=== PATIENT | male | born 1930 ===

== ENCOUNTER 2016-12-14 13:41 | Inpatient (IN) | payer OTHER ==
--- NOTE | 2016-12-14 14:22 | ED PDOC ---
HPI: Chest Pain Time Seen by Provider: 12/14/16 13:58 Chief Complaint (Nursing): Chest Pain Chief Complaint (Provider): Chest Pain History Per: Patient History/Exam Limitations: no limitations Onset/Duration Of Symptoms: Days Current Symptoms Are (Timing): Still Present Severity: Moderate Quality: "Pain" Associated Symptoms: Dyspnea Modifying Factors: None Exacerbating Factors: None Alleviating Factors: None Additional Complaint(s): Patient is a 85 year old male who presents to ED with daughter for evaluation of chest pain that began yesterday. Pain is described as left sided, mid sternal , sharp yesterday but today just " pain" with SOB. Patient reports taking ASA [place] but ran out, did not take his ASA this morning. Past Medical History Reviewed: Historical Data, Nursing Documentation, Vital Signs Vital Signs: Last Vital Signs Temp 97 F L 12/14/16 13:50 Pulse 62 12/14/16 13:50 Resp 16 12/14/16 13:50 BP 144/71 12/14/16 13:50 Pulse Ox 100 12/14/16 14:33 - Medical History PMH: Anxiety, Benign Prostatic Hyperplasia, HTN, Hyperlipidemia - Surgical History Surgical History: No Surg Hx - Family History Family History: States: No Known Family Hx - Home Medications Home Medications: Ambulatory Orders Medication Instructions Recorded ALPRAZolam [Xanax] 1 tab PO PRN PRN 12/14/16 Atorvastatin Calcium [Atorvastatin 1 tab PO HS 12/14/16 Calcium] Cetirizine HCl [All Day Allergy] 1 tab PO PRN PRN 12/14/16 Finasteride [Proscar] 1 tab PO HS 12/14/16 Metoprolol Tartrate [Lopressor] 1 tab PO BID 12/14/16 Pantoprazole [Protonix EC Tab] 1 tab PO BID 12/14/16 Tamsulosin [Flomax] 1 tab PO HS 12/14/16 - Allergies Allergies/Adverse Reactions: Allergies Allergy/AdvReac Type Severity Reaction Status Date / Time Penicillins Allergy RASH Verified 12/14/16 13:50 MAISHA Risk Score for UA/NSTEMI - MAISHA Risk Score Age > 64: YES 3 or more CAD Risk Factors: YES Known CAD (Stenosis greater than 50%): NO Aspirin use in past 7 days: YES Severe Angina: NO EKG ST changes greater than 0.5mm: NO Positive Cardiac Marker: NO MAISHA Score: 3 Risk %: 13% Review of Systems ROS Statement: Except As Marked, All Systems Reviewed And Found Negative Constitutional: Negative for: Fever, Chills Cardiovascular: Positive for: Chest Pain. Negative for: Palpitations, Light Headedness Respiratory: Positive for: Shortness of Breath. Negative for: Cough Gastrointestinal: Negative for: Nausea, Vomiting Musculoskeletal: Negative for: Neck Pain Skin: Negative for: Rash Neurological: Negative for: Weakness, Numbness Physical Exam - Reviewed Nursing Documentation Reviewed: Yes Vital Signs Reviewed: Yes - Physical Exam Appears: Positive for: Non-toxic, No Acute Distress Skin: Positive for: Normal Color, Warm Eye Exam: Positive for: Normal appearance Neck: Positive for: Normal, Painless ROM Cardiovascular/Chest: Positive for: Regular Rate, Rhythm, Chest Non Tender. Negative for: Murmur Respiratory: Positive for: Normal Breath Sounds. Negative for: Respiratory Distress Back: Positive for: Normal Inspection Extremity: Positive for: Normal ROM. Negative for: Pedal Edema, Calf Tenderness Neurologic/Psych: Positive for: Alert, Oriented. Negative for: Motor/Sensory Deficits - Laboratory Results Result Diagrams: 12/14/16 15:05 12/14/16 15:05 - ECG Interpretation Of ECG: NSR @ 67, no ST-T changes. O2 Sat by Pulse Oximetry: 100 (RA) Pulse Ox Interpretation: Normal - Radiology X-Ray: Interpreted by Me X-Ray Interpretation: No Acute Disease Medical Decision Making Medical Decision Making: Time: 1420 Initial impression: Chest pain r/o ACS Initial plan: -- EKG -- CMP -- Troponin -- CBC -- PT/PTT -- CXR Scribe Attestation: Documented by Makeda Mcmillan acting as a scribe for Natty Clements MD MD Scribe Attestation: All medical record entries made by the Scribe were at my direction and personally dictated by me. I have reviewed the chart and agree that the record accurately reflects my personal performance of the history, physical exam, medical decision making, and the department course for this patient. I have also personally directed, reviewed, and agree with the discharge instructions and disposition. Disposition - Clinical Impression Clinical Impression: Chest pain - Patient ED Disposition Is Patient to be Admitted: Yes - Disposition Disposition Time: 16:15 Condition: STABLE - Pt Status Changed To: Hospital Disposition Of: Observation - POA Present On Arrival: None
[2016-12-14 15:10] LABS: BASO % 0.6 % (0.0-2.0); EOS # 0.4 K/uL (0.0-0.7); EOS % 5.1 % (0.0-4.0); HEMATOCRIT 41.1 % (35.0-51.0); LYMPH # 2.8 K/uL (1.0-4.3); MEAN CELL VOLUME 85.5 fl (80.0-94.0); MEAN CORPUSCULAR HEMOGLOBIN 27.7 pg (27.0-31.0); MEAN CORPUSCULAR HGB CONC 32.4 g/dL (33.0-37.0); MEAN PLATELET VOLUME 9.3 fl (7.2-11.7); MONO # 0.6 K/uL (0.0-0.8); NEUT # 3.7 K/uL (1.8-7.0); NEUT % 49.3 % (50.0-75.0); NRBC % 2.1 % (0.0-0.0); RED CELL DISTRIBUTION WIDTH 14.8 % (11.5-14.5); WHITE BLOOD COUNT 7.5 K/uL (4.8-10.8)
[2016-12-14 15:23] LABS: ALB/GLOB RATIO 1.3 (1.0-2.1); BILIRUBIN,TOTAL 0.5 mg/dl (0.2-1.3); CALCIUM 8.9 mg/dL (8.4-10.2); POTASSIUM 4.8 MMOL/L (3.6-5.0); TOTAL PROTEIN 6.8 G/DL (6.3-8.2)
[2016-12-14 15:25] LABS: PARTIAL THROMBOPLASTIN TIME 28.5 SECONDS (23.3-32.5)
[2016-12-14 15:36] LABS: TROPONIN I 0.016 ng/mL (0.00-0.120)
--- NOTE | 2016-12-14 16:49 | CP.PCM.HP ---
<Thao Shaw - Last Filed: 12/15/16 14:26> History of Present Illness - History of Present Illness History of Present Illness: Pt is a 85 year old male with history of gastric ulcer, BPH and HTN who presents to ED with daughter for evaluation of chest pain that began yesterday. Pain is described as left sided, mid sternal, sharp yesterday but today just " pain" with SOB. Patient reports taking ASA daily but ran out. Pt seen and examined at bedside in ED, he point more towards his stomach area for the place the pain is coming from and radiating to his back. Pain has not changed since onset. denies any dizziness, cough, nausea, vomiting or change in bowel habits Present on Admission - Present on Admission Any Indicators Present on Admission: No Review of Systems - Review of Systems All systems: reviewed and no additional remarkable complaints except Review of Systems: Per HPI Past Patient History - Past Social History Smoking Status: Never Smoked - CARDIAC Hx Hypertension: Yes - RENAL Other/Comment: "kidney problems" - PSYCHIATRIC Hx Anxiety: Yes - SURGICAL HISTORY Hx Herniorrhaphy: Yes Other/Comment: hernia repair, gastric ulcer surgery - ANESTHESIA Hx Anesthesia: Yes Hx Anesthesia Reactions: No Meds Allergies/Adverse Reactions: Allergies Allergy/AdvReac Type Severity Reaction Status Date / Time Penicillins Allergy RASH Verified 12/14/16 13:50 Physical Exam - Constitutional Appears: Non-toxic, No Acute Distress - Head Exam Head Exam: NORMOCEPHALIC - Eye Exam Eye Exam: Normal appearance - ENT Exam ENT Exam: Mucous Membranes Moist - Respiratory Exam Respiratory Exam: Clear to Auscultation Bilateral, NORMAL BREATHING PATTERN. absent: Wheezes - Cardiovascular Exam Cardiovascular Exam: REGULAR RHYTHM, +S1, +S2 - GI/Abdominal Exam GI & Abdominal Exam: Normal Bowel Sounds, Soft - Extremities Exam Extremities exam: Negative for: calf tenderness, pedal edema Results - Vital Signs Recent Vital Signs: Last Vital Signs Temp 97 F L 12/14/16 13:50 Pulse 62 12/14/16 13:50 Resp 16 12/14/16 13:50 BP 144/71 12/14/16 13:50 Pulse Ox 100 12/14/16 16:48 - Labs Result Diagrams: 12/14/16 15:05 12/14/16 15:05 Assessment & Plan - Assessment and Plan (Free Text) Assessment: 86 y/o male with history of BPH, HTN and gastric ulcer admitted for chest pain rule out ACS Plan: 1. Chest pain r/o ACS cardiac enzymes (first 1 neg) f/u x2 Aspirin 325 pain management as ordered cardiology consulted 2. resume home meds 3. Diet- heart healthy dvt- lovenox 30mg SC daily <Artie He - Last Filed: 12/19/16 06:08> Results - Vital Signs Recent Vital Signs: Last Vital Signs Temp 97.5 F L 12/19/16 05:00 Pulse 64 12/19/16 05:00 Resp 18 12/19/16 05:00 BP 137/79 12/19/16 05:00 Pulse Ox 96 12/19/16 05:00 - Labs Result Diagrams: 12/18/16 06:40 12/18/16 06:40 Labs: Laboratory Results - last 24 hr 12/18/16 06:40 WBC 7.6 RBC 4.58 Hgb 12.7 Hct 38.9 MCV 85.0 MCH 27.8 MCHC 32.7 L RDW 14.5 Plt Count 218 Sodium 142 Potassium 5.3 H Chloride 106 Carbon Dioxide 26 Anion Gap 15 BUN 31 H Creatinine 2.1 H Est GFR ( Amer) 37 Est GFR (Non-Af Amer) 30 Random Glucose 101 Calcium 8.8 Assessment & Plan (1) Chest pain Status: Acute Priority: High (2) Benign prostatic hyperplasia Status: Acute (3) Renal insufficiency Status: Acute (4) Hyperkalemia Status: Acute - Assessment and Plan (Free Text) Plan: I was present during evaluation and discussed with Dr Valeria manning plans of care and management. Artie He M.D.
--- NOTE | 2016-12-14 16:59 | RAD ---
HISTORY: CP COMPARISON: No prior. FINDINGS: LUNGS: Patchy small opacities seen at the lung bases left more than right. PLEURA: No significant pleural effusion identified, no pneumothorax apparent. CARDIOVASCULAR: Normal. OSSEOUS STRUCTURES: No significant abnormalities. VISUALIZED UPPER ABDOMEN: Normal. OTHER FINDINGS: None. IMPRESSION: Small bibasilar opacities more prominent on the left side may be due to atelectasis. Otherwise no evidence of active pulmonary disease.
--- NOTE | 2016-12-14 17:58 | CARD ---
APPROVED REPORT EKG Measurement Heart [id number] <Conclusion> Normal sinus rhythm Left axis deviation Minimal voltage criteria for LVH, may be normal variant Nonspecific ST and T wave abnormality Prolonged QT Abnormal ECG
[2016-12-14] MEDS ORDERED: Pantoprazole 40 mg EC Tab PO ONE (18:26)
[2016-12-14] MEDS: Pantoprazole 40 mg EC Tab PO SCH (18:32)
[2016-12-15] MEDS: NITROGLYCERIN TOP PRN ×2 (03:32→21:07)
[2016-12-15] MEDS ORDERED: NITROGLYCERIN TOP SCH (04:00)
--- NOTE | 2016-12-15 07:07 | CP.PCM.CON ---
History of Present Illness - History of Present Illness History of Present Illness: 86 y/o male admitted w/ chest pain Left parasternal sharp pain Claims the pain is still present but dull and aching no relation to exertion Troponin: neg x 3 EKG: NSR PMH: Anxiety, Benign Prostatic Hyperplasia, HTN, Hyperlipidemia Past Patient History - Past Social History Smoking Status: Former Smoker - CARDIAC Hx Cardiac Disorders: Yes (HTN,HLD) - PULMONARY Hx Respiratory Disorders: No - NEUROLOGICAL Hx Neurological Disorder: No - HEENT Hx HEENT Problems: Yes Hx Deafness: Yes (left) - RENAL Hx Chronic Kidney Disease: Yes Other/Comment: Right kidney 30% function only - ENDOCRINE/METABOLIC Hx Endocrine Disorders: No - HEMATOLOGICAL/ONCOLOGICAL Hx Blood Disorders: Yes Hx Anemia: Yes (Diagnosed in 2016) - INTEGUMENTARY Hx Dermatological Problems: No - MUSCULOSKELETAL/RHEUMATOLOGICAL Hx Musculoskeletal Disorders: Yes Hx Arthritis: Yes Hx Falls: No - GASTROINTESTINAL Hx Gastrointestinal Disorders: Yes Hx Gastritis: Yes HX Swallowing Problems: Yes - GENITOURINARY/GYNECOLOGICAL Hx Genitourinary Disorders: Yes Hx Prostate Problems: Yes - PSYCHIATRIC Hx Psychophysiologic Disorder: Yes (ANX) Hx Anxiety: Yes Hx Substance Use: No - SURGICAL HISTORY Hx Surgeries: Yes Hx Herniorrhaphy: Yes Other/Comment: hernia repair, gastric ulcer surgery - ANESTHESIA Hx Anesthesia: Yes Hx Anesthesia Reactions: No Meds Allergies/Adverse Reactions: Allergies Allergy/AdvReac Type Severity Reaction Status Date / Time Penicillins Allergy RASH Verified 12/14/16 13:50 - Medications Medications: Current Medications Acetaminophen (Tylenol 325mg Tab) 650 mg PO Q4 PRN PRN Reason: Headache Last Admin: 12/15/16 03:31 Dose: 650 mg Alprazolam (Xanax) 0.25 mg PO HS PRN PRN Reason: Anxiety Stop: 12/21/16 16:28 Last Admin: 12/14/16 21:14 Dose: 0.25 mg Aspirin (Aspirin) 325 mg PO DAILY [facility] Atorvastatin Calcium (Lipitor) 20 mg PO HS [facility] Last Admin: 12/14/16 21:19 Dose: 20 mg Enoxaparin Sodium (Lovenox) 30 mg SC DAILY [facility] PRN Reason: Protocol Finasteride (Proscar) 5 mg PO HS [facility] Last Admin: 12/14/16 21:19 Dose: 5 mg Home Med (Cetirizine Hcl [All Day Allergy]) 1 tab PO PRN PRN PRN Reason: Allergy symptoms Metoprolol Tartrate (Lopressor) 25 mg PO BID [facility] Last Admin: 12/14/16 18:14 Dose: 25 mg Nitroglycerin (Nitro-Bid) 0.5 appl TOP Q6 PRN PRN Reason: FOR CHEST PAIN Last Admin: 12/15/16 03:32 Dose: 0.5 appl Pantoprazole Sodium (Protonix Ec Tab) 40 mg PO BID [facility] Last Admin: 12/14/16 18:32 Dose: 40 mg Tamsulosin HCl (Flomax) 0.4 mg PO HS [facility] Last Admin: 12/14/16 21:19 Dose: 0.4 mg Physical Exam - Respiratory Exam Respiratory Exam: NORMAL BREATHING PATTERN - Cardiovascular Exam Cardiovascular Exam: REGULAR RHYTHM Results - Vital Signs Recent Vital Signs: Last Vital Signs Temp 97.4 F L 12/15/16 04:50 Pulse 67 12/15/16 04:50 Resp 19 12/15/16 04:50 BP 114/71 12/15/16 04:50 Pulse Ox 97 12/15/16 04:50 - Labs Result Diagrams: 12/14/16 15:05 12/14/16 15:05 Labs: Laboratory Results - last 24 hr 12/14/16 12/15/16 18:20 00:30 Troponin I 0.0140 0.0140 Assessment & Plan (1) Chest pain Assessment and Plan: Most likely non cardiac in origin Status: Acute
[2016-12-15] MEDS: Pantoprazole 40 mg EC Tab PO SCH ×2 (08:55→17:48)
[2016-12-15] MEDS: Enoxaparin 30 mg Syringe SC SCH (08:56)
[2016-12-15] MEDS: Alum-Mag Hydrox-Simethicone Susp (30 mL) PO PRN (12:13)
--- NOTE | 2016-12-15 13:16 | PCM.RRTMUL ---
EXTRUSION LINE OPERATOR Nurse Assessment - Vital Signs Blood Pressure:: 111/61 Pulse Rate:: 63 Responder Note - Time EXTRUSION LINE OPERATOR was called Time EXTRUSION LINE OPERATOR was called:: 11:52 - Location Location: [address] [place] [address] telemetry - EXTRUSION LINE OPERATOR Team EXTRUSION LINE OPERATOR Leader:: Omer Holcomb Resident:: Cari Montiel - Vital Signs at Initial Assessment Blood Pressure:: 140/62 Pulse Rate:: 72 O2 Sat by Pulse Oximetry:: 98 - Chest Pain Chest Pain:(If answer is yes, complete next 2 questions): Yes - Seizure Seizure:: No New Onset:: No - Neurological Status Neurological Status (Select all that apply):: Alert, Responsive, Oriented, Verbal, Follows Commands - Respiratory EXTRUSION LINE OPERATOR Delivery Method:: Nasal Cannula @L/min - Assessment of Findings EKG: NSR, HR:66 b/min Summary - Summary of Event Summary of Event: EXTRUSION LINE OPERATOR was called for a 56 yo , m , PMHx/o anxiety, Benign Prostatic Hyperplasia, HTN, Hyperlipidemia admitted for chest pain, who was noted by the nurse c/o substernal chest pain, 8/10 in intensity radiated to upper back and right interscapular region. On responder arrival patient lying down, using O2 NC, responsive, AAOx 3, verbal, follow commands. Patient denies abd pain, N/V/D, diaphoresis. Initial VS: 140/62 HR: 72 b/min Sat O2 98 PE GA: Patient lying down, using O2 NC, responsive, AAOx 3, follow commands, no acute distress Resp: Chest no reproducible pain over anterior chest. Td to palpation upper back right interscapular region. CTA, no rales, rhonchi, wheezing. CV: RRR, + S1, S2. No M/R/G. no JVD, no pedal edema, no cyanosis. B/L radial pulses symmetric. Left arm BP: 150/70 Abd: + Bs, Soft, No TD, No HSM Neuro: AAO x 3, no focal motor deficit. ID: Chest pain possible secondary to gastritis or MSK etiology. ACS ruled out Plan: -EKG stat: NSR. no acute T wave or ST changes. HR: 72 b/min -CT chest w/o contrast pending. -Malox 30 mg PO -c/w PPI will f/u
--- NOTE | 2016-12-15 14:40 | CT ---
PROCEDURE: CT Chest without contrast HISTORY: Chest pain COMPARISON: None. TECHNIQUE: Contiguous axial images were obtained through the chest without intravenous contrast enhancement. Sagittal and coronal reconstructions were performed. Radiation dose (DLP): 474.27 mGy-cm. This CT exam was performed using 1 or more of the following dose reduction techniques: Automated exposure control, adjustment of the mA and/or kV according to patient size, and/or use of iterative reconstruction technique. FINDINGS: LUNGS: Minimal dependent atelectasis both posterior lower lobes. No pulmonary infiltrate. No mass. MEDIASTINUM: Unremarkable thoracic aorta. No aneurysm. Normal-sized heart. Coronary arterial calcification. Main pulmonary artery unremarkable. No vascular congestion. No lymphadenopathy. Surgical clips seen at gastroesophageal junction. PLEURA: Minimal subpleural emphysema posterior lower lobes. BONES: No fracture. No destructive lesion. UPPER ABDOMEN: Punctate splenic calcifications consistent with old granulomas. Probable renal cysts, 1.2 cm upper pole and 1.6 cm mid aspect. OTHER FINDINGS: None. IMPRESSION: No pulmonary infiltrate. No pneumothorax. Evidence prior surgery at the gastroesophageal junction. Minor findings as above.
--- NOTE | 2016-12-15 14:45 | RAD ---
PROCEDURE: CHEST RADIOGRAPH, 1 VIEW HISTORY: Chest pain radiating to back COMPARISON: Comparison made with chest radiograph 12/14/2016. This study was also read in conjunction with CT scan 12/14/2016 at 23:40 4 hours. FINDINGS: LUNGS: Mild bibasilar atelectasis PLEURA: No pneumothorax or pleural fluid seen. CARDIOVASCULAR: Normal. OSSEOUS STRUCTURES: No significant abnormalities. VISUALIZED UPPER ABDOMEN: Normal. OTHER FINDINGS: None. IMPRESSION: No active disease.
--- NOTE | 2016-12-15 15:04 | CP.PCM.CON ---
History of Present Illness - History of Present Illness History of Present Illness: This 86 year old male, a former cigarette smoker, was admitted through the emergency room because of substernal chest pain which radiates to the back and is associated with some degree of shortness of breath.. The pain is aggravated by physical activity, but not respiratory related. He has some nausea as well, but no vomiting. No changes in bowel habits. No cough, sputum or hemoptysis. No fever, chills or sweats. 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 The pain became more persistent today and RRTY was called. A CT chest w/o contrast was requested at that time. Renal function is compromised and a contrast study could not be done. Cardiac work up thus far has apparently been negative. He does relate a history of gastric ulcer surgery in the remote past, but symptoms are not the same as then. Nothing relieved the pain when it occurred today except for narcotic analgesic. He is a former cigarette smoker who quit many years ago. He does not recall any history of pulmonary disease. He has been taking ASA care home. Past Patient History - Past Social History Smoking Status: Former Smoker Chewing Tobacco Use: No Cigar Use: No Alcohol: None Drugs: Denies - CARDIAC Hx Hypertension: Yes - PULMONARY Hx Respiratory Disorders: No - NEUROLOGICAL Hx Neurological Disorder: No - HEENT Hx Deafness: Yes (left) - RENAL Other/Comment: "kidney problems" - ENDOCRINE/METABOLIC Hx Endocrine Disorders: No - HEMATOLOGICAL/ONCOLOGICAL Hx Anemia: Yes - INTEGUMENTARY Hx Dermatological Problems: No - MUSCULOSKELETAL/RHEUMATOLOGICAL Hx Arthritis: Yes Hx Falls: No - GASTROINTESTINAL Hx Gastritis: Yes HX Swallowing Problems: Yes - GENITOURINARY/GYNECOLOGICAL Hx Prostate Problems: Yes - PSYCHIATRIC Hx Anxiety: Yes - SURGICAL HISTORY Hx Herniorrhaphy: Yes Other/Comment: gastric ulcer surgery - ANESTHESIA Hx Anesthesia: Yes Hx Anesthesia Reactions: No Meds Allergies/Adverse Reactions: Allergies Allergy/AdvReac Type Severity Reaction Status Date / Time Penicillins Allergy RASH Verified 12/14/16 13:50 - Medications Medications: Current Medications Acetaminophen (Tylenol 325mg Tab) 650 mg PO Q4 PRN PRN Reason: Headache Last Admin: 12/15/16 03:31 Dose: 650 mg Al Hydrox/Mg Hydrox/Simethicone (Maalox Plus 30 Ml) 30 ml PO Q4 PRN PRN Reason: Indigestion / Heartburn Last Admin: 12/15/16 12:13 Dose: 30 ml Alprazolam (Xanax) 0.25 mg PO HS PRN PRN Reason: Anxiety Stop: 12/21/16 16:28 Last Admin: 12/14/16 21:14 Dose: 0.25 mg Aspirin (Aspirin) 325 mg PO DAILY [facility] Last Admin: 12/15/16 08:55 Dose: 325 mg Atorvastatin Calcium (Lipitor) 20 mg PO HS [facility] Last Admin: 12/14/16 21:19 Dose: 20 mg Enoxaparin Sodium (Lovenox) 30 mg SC DAILY [facility] PRN Reason: Protocol Last Admin: 12/15/16 08:56 Dose: 30 mg Finasteride (Proscar) 5 mg PO HS [facility] Last Admin: 12/14/16 21:19 Dose: 5 mg Loratadine (Claritin) 10 mg PO DAILY [facility] Metoprolol Tartrate (Lopressor) 25 mg PO BID [facility] Last Admin: 12/15/16 08:57 Dose: Not Given Morphine Sulfate (Morphine) 2 mg IVP Q4 PRN PRN Reason: Pain, severe (8-10) Last Admin: 12/15/16 12:13 Dose: 2 mg Nitroglycerin (Nitro-Bid) 0.5 appl TOP Q6 PRN PRN Reason: FOR CHEST PAIN Last Admin: 12/15/16 03:32 Dose: 0.5 appl Pantoprazole Sodium (Protonix Ec Tab) 40 mg PO BID [facility] Last Admin: 12/15/16 08:55 Dose: 40 mg Sucralfate (Carafate Oral Susp) 1 gm PO QID [facility] Tamsulosin HCl (Flomax) 0.4 mg PO HS [facility] Last Admin: 12/14/16 21:19 Dose: 0.4 mg Physical Exam - Additional Findings Additional findings: Well nourished, well developed, comfortable at this time. Cooperative with the exam, answers all questions clearly. No palpable lymphadenopathy. Neck is supple and trachea midline, no visible JVD. No carotid bruit, no thromegaly. Pharynx pink and moist w/o exudate. Conjunctivae pink and non-icteric. Nares patent bilaterally. No dullness on chest percussion. No chest wall tenderness on palpation or percussion. Breath sounds are diminished bilaterally. Occasional sonorous rhonchi in dependant zones of lower lobes. No audible wheezes or bronchial breath sounds. Few dry rales in lower lobes. Heart sounds are distant, regular rhythm, no murmur, Abdomen is soft and non-tender. Healed surgical scar noted. Normal bowel sounds. No palpable hepatosplenomegaly or mass. No CVA tenderness. No dependant edema or cyanosis. Results - Vital Signs Recent Vital Signs: Last Vital Signs Temp 97.6 F 12/15/16 08:00 Pulse 72 12/15/16 13:56 Resp 18 12/15/16 08:00 BP 140/62 12/15/16 13:56 Pulse Ox 96 12/15/16 08:00 - Labs Result Diagrams: 12/14/16 15:05 12/14/16 15:05 Assessment & Plan (1) Chest pain Status: Acute Priority: High Comment: Etiology is not clear at this time. The pain does not appear to be pleuritic in nature. CT chest shows a few sub-pleural blebs, but is otherwise somewhat unremarkable. There is no pneumonia or pleural effusion. Of course a PE cannot be ruled out w/o contrast. The thoracic aorta appears unremarkable as well. - Assessment and Plan (Free Text) Plan: I will add some carafate suspension to his regimen in case this represents esophageal spasm from acid reflux disease. A V/Q lung scan would be in order to better say that there has been no PE. Thank you. - Date & Time Date: 12/15/16 Time: 15:19
[2016-12-15 15:31] LABS: AMYLASE 126 U/L (30-110); LIPASE 199 U/L (23-300)
[2016-12-15] MEDS: Sucralfate 1 gm/10 ml Oral Susp UD PO SCH (17:48)
--- NOTE | 2016-12-15 18:40 | CARD ---
APPROVED REPORT EKG Measurement Heart [id number] <Conclusion> Normal sinus rhythm Left axis deviation Minimal voltage criteria for LVH, may be normal variant Abnormal ECG
--- NOTE | 2016-12-15 21:21 | US ---
EXAM: US Abdomen Complete CLINICAL HISTORY: 86 years old, male; Pain; Abdominal pain; Generalized TECHNIQUE: Real-time ultrasound of the abdomen (complete) with image documentation. COMPARISON: No relevant prior studies available. FINDINGS: Liver: Unremarkable as visualized. Measured at approximately 14 cm. No intrahepatic bile duct dilation. Gallbladder: Unremarkable as visualized. No gallstones. Common bile duct: No dilation, measured at 3.8 mm. Pancreas: Not well visualized. Kidneys: No hydronephrosis. Four cysts visualized in the right kidney, measuring 1.9 cm, 1.2 cm, 0.9 cm and 1.5 with evidence of mild complexity cm. 9 mm cyst noted in the left kidney. Spleen: No splenomegaly. Aorta/IVC: Unremarkable as visualized. IMPRESSION: No definitive acute sonographic finding to correspond to reported history. Pancreas not well-visualized. Renal cysts. Details as above. Correlate clinically. Followup as warranted.
[2016-12-16] MEDS: Sucralfate 1 gm/10 ml Oral Susp UD PO SCH ×5 (02:36→21:43)
[2016-12-16 06:43] LABS: HEMATOCRIT 37.1 % (35.0-51.0); MEAN CELL VOLUME 85.2 fl (80.0-94.0); MEAN CORPUSCULAR HEMOGLOBIN 27.9 pg (27.0-31.0); MEAN CORPUSCULAR HGB CONC 32.7 g/dL (33.0-37.0); RED CELL DISTRIBUTION WIDTH 14.2 % (11.5-14.5); WHITE BLOOD COUNT 8.8 K/uL (4.8-10.8)
[2016-12-16 06:55] LABS: CALCIUM 8.4 mg/dL (8.4-10.2); POTASSIUM 5.1 MMOL/L (3.6-5.0)
[2016-12-16] MEDS: Pantoprazole 40 mg EC Tab PO SCH ×2 (08:34→16:25)
[2016-12-16] MEDS: Enoxaparin 30 mg Syringe SC SCH (08:35)
[2016-12-16 15:47] LABS: RBC URINE < 1 /hpf (0-3); URINE BILIRUBIN NEGATIVE (NEGATIVE); URINE BLOOD NEGATIVE (NEGATIVE); URINE COLOR STRAW (YELLOW); URINE GLUCOSE (UA) NEG (Normal); URINE KETONE NEGATIVE (NEGATIVE); URINE LEUKOCYTE ESTERASE NEG Leu/uL (Negative); URINE PROTEIN 100 mg/dL (NEGATIVE); URINE UROBILINOGEN 0.2-1.0 mg/dL (0.2-1.0); WBC URINE < 1 /hpf (0-5)
[2016-12-17 08:22] LABS: POTASSIUM 5.2 MMOL/L (3.6-5.0)
[2016-12-17] MEDS: Alum-Mag Hydrox-Simethicone Susp (30 mL) PO PRN (08:33)
[2016-12-17] MEDS: Enoxaparin 30 mg Syringe SC SCH (08:34)
[2016-12-17] MEDS: Pantoprazole 40 mg EC Tab PO SCH ×2 (08:34→16:56)
[2016-12-17] MEDS: Sucralfate 1 gm/10 ml Oral Susp UD PO SCH ×4 (08:38→21:32)
[2016-12-17] MEDS ORDERED: Sod Polystyrene Sulf 15 gm/60 ml Oral Susp PO ONE (12:46)
--- NOTE | 2016-12-17 12:46 | CP.PCM.PN ---
Subjective - Date & Time of Evaluation Date of Evaluation: 12/17/16 Time of Evaluation: 12:46 - Subjective Subjective: Comfortable Noted elevated potassium 5.2 Not on any meds which can increase potassium Denies having eaten high potassium foods. noted rise in creatinine. Objective - Vital Signs/Intake and Output Vital Signs (last 24 hours): Temp Pulse Resp BP Pulse Ox 97.7 F 75 20 171/74 H 97 12/17/16 09:00 12/17/16 09:00 12/17/16 09:00 12/17/16 09:00 12/17/16 09:00 - Medications Medications: Current Medications Acetaminophen (Tylenol 325mg Tab) 650 mg PO Q4 PRN PRN Reason: Headache Last Admin: 12/15/16 03:31 Dose: 650 mg Al Hydrox/Mg Hydrox/Simethicone (Maalox Plus 30 Ml) 30 ml PO Q4 PRN PRN Reason: Indigestion / Heartburn Last Admin: 12/17/16 08:33 Dose: 30 ml Alprazolam (Xanax) 0.25 mg PO HS PRN PRN Reason: Anxiety Stop: 12/21/16 16:28 Last Admin: 12/16/16 21:43 Dose: 0.25 mg Aspirin (Aspirin) 325 mg PO DAILY [facility] Last Admin: 12/17/16 08:38 Dose: 325 mg Atorvastatin Calcium (Lipitor) 20 mg PO HS [facility] Last Admin: 12/16/16 21:43 Dose: 20 mg Enoxaparin Sodium (Lovenox) 30 mg SC DAILY [facility] PRN Reason: Protocol Last Admin: 12/17/16 08:34 Dose: 30 mg Finasteride (Proscar) 5 mg PO HS [facility] Last Admin: 12/16/16 21:43 Dose: 5 mg Loratadine (Claritin) 10 mg PO DAILY [facility] Last Admin: 12/17/16 08:34 Dose: 10 mg Metoprolol Tartrate (Lopressor) 25 mg PO BID [facility] Last Admin: 12/17/16 08:39 Dose: 25 mg Morphine Sulfate (Morphine) 2 mg IVP Q4 PRN PRN Reason: Pain, severe (8-10) Last Admin: 12/17/16 12:43 Dose: 2 mg Nitroglycerin (Nitro-Bid) 0.5 appl TOP Q6 PRN PRN Reason: FOR CHEST PAIN Last Admin: 12/15/16 21:07 Dose: 0.5 appl Pantoprazole Sodium (Protonix Ec Tab) 40 mg PO BID [facility] Last Admin: 12/17/16 08:34 Dose: 40 mg Sucralfate (Carafate Oral Susp) 1 gm PO QID [facility] Last Admin: 12/17/16 12:31 Dose: 1 gm Tamsulosin HCl (Flomax) 0.4 mg PO HS [facility] Last Admin: 12/16/16 21:43 Dose: 0.4 mg - Labs Labs: 12/16/16 04:30 12/17/16 06:00 PT 10.8 SECONDS (9.6-11.2) 12/14/16 15:05 INR 1.04 (0.92-1.08) 12/14/16 15:05 APTT 28.5 SECONDS (23.3-32.5) 12/14/16 15:05 - Head Exam Head Exam: NORMAL INSPECTION - Eye Exam Eye Exam: Normal appearance - ENT Exam ENT Exam: Mucous Membranes Moist - Respiratory Exam Respiratory Exam: NORMAL BREATHING PATTERN - Cardiovascular Exam Cardiovascular Exam: REGULAR RHYTHM - GI/Abdominal Exam GI & Abdominal Exam: Normal Bowel Sounds - Neurological Exam Neurological Exam: CN II-XII Intact, Oriented x3 - Psychiatric Exam Psychiatric exam: Normal Mood Assessment and Plan (1) Chest pain Status: Acute (2) Benign prostatic hyperplasia Status: Acute (3) Renal insufficiency Status: Acute (4) Hyperkalemia Status: Acute - Assessment and Plan (Free Text) Plan: Cont meds cont tx Cont hydration repeat potassium level in am encouraged fluids
--- NOTE | 2016-12-17 12:46 | CP.PCM.PN ---
Subjective - Date & Time of Evaluation Date of Evaluation: 12/16/16 Time of Evaluation: 10:00 - Subjective Subjective: Patient still has chest tightness Noted enzymes to be all normal Has no cough. Otherwise noted to be comfortable in bed eating his meal with family. Objective - Vital Signs/Intake and Output Vital Signs (last 24 hours): Temp Pulse Resp BP Pulse Ox 97.7 F 75 20 171/74 H 97 12/17/16 09:00 12/17/16 09:00 12/17/16 09:00 12/17/16 09:00 12/17/16 09:00 - Medications Medications: Current Medications Acetaminophen (Tylenol 325mg Tab) 650 mg PO Q4 PRN PRN Reason: Headache Last Admin: 12/15/16 03:31 Dose: 650 mg Al Hydrox/Mg Hydrox/Simethicone (Maalox Plus 30 Ml) 30 ml PO Q4 PRN PRN Reason: Indigestion / Heartburn Last Admin: 12/17/16 08:33 Dose: 30 ml Alprazolam (Xanax) 0.25 mg PO HS PRN PRN Reason: Anxiety Stop: 12/21/16 16:28 Last Admin: 12/16/16 21:43 Dose: 0.25 mg Aspirin (Aspirin) 325 mg PO DAILY [facility] Last Admin: 12/17/16 08:38 Dose: 325 mg Atorvastatin Calcium (Lipitor) 20 mg PO HS [facility] Last Admin: 12/16/16 21:43 Dose: 20 mg Enoxaparin Sodium (Lovenox) 30 mg SC DAILY [facility] PRN Reason: Protocol Last Admin: 12/17/16 08:34 Dose: 30 mg Finasteride (Proscar) 5 mg PO HS [facility] Last Admin: 12/16/16 21:43 Dose: 5 mg Loratadine (Claritin) 10 mg PO DAILY [facility] Last Admin: 12/17/16 08:34 Dose: 10 mg Metoprolol Tartrate (Lopressor) 25 mg PO BID [facility] Last Admin: 12/17/16 08:39 Dose: 25 mg Morphine Sulfate (Morphine) 2 mg IVP Q4 PRN PRN Reason: Pain, severe (8-10) Last Admin: 12/16/16 20:12 Dose: 2 mg Nitroglycerin (Nitro-Bid) 0.5 appl TOP Q6 PRN PRN Reason: FOR CHEST PAIN Last Admin: 12/15/16 21:07 Dose: 0.5 appl Pantoprazole Sodium (Protonix Ec Tab) 40 mg PO BID [facility] Last Admin: 12/17/16 08:34 Dose: 40 mg Sucralfate (Carafate Oral Susp) 1 gm PO QID [facility] Last Admin: 12/17/16 12:31 Dose: 1 gm Tamsulosin HCl (Flomax) 0.4 mg PO HS [facility] Last Admin: 12/16/16 21:43 Dose: 0.4 mg - Labs Labs: 12/16/16 04:30 12/17/16 06:00 PT 10.8 SECONDS (9.6-11.2) 12/14/16 15:05 INR 1.04 (0.92-1.08) 12/14/16 15:05 APTT 28.5 SECONDS (23.3-32.5) 12/14/16 15:05 - Head Exam Head Exam: NORMAL INSPECTION - Eye Exam Eye Exam: Normal appearance - ENT Exam ENT Exam: Mucous Membranes Moist - Respiratory Exam Respiratory Exam: Clear to Ausculation Bilateral - Cardiovascular Exam Cardiovascular Exam: REGULAR RHYTHM - Neurological Exam Neurological Exam: Awake, Oriented x3 Assessment and Plan (1) Chest pain Status: Acute (2) Benign prostatic hyperplasia Status: Acute - Assessment and Plan (Free Text) Plan: cont meds cont tx check labs start PT
--- NOTE | 2016-12-17 12:48 | CP.PCM.PN ---
Subjective - Date & Time of Evaluation Date of Evaluation: 12/15/16 Time of Evaluation: 09:30 - Subjective Subjective: Patient stiill has some chest tightness but all CE are negative Has slight cough No fever. Has no dysphagia Objective - Vital Signs/Intake and Output Vital Signs (last 24 hours): Temp Pulse Resp BP Pulse Ox 97.7 F 75 20 171/74 H 97 12/17/16 09:00 12/17/16 09:00 12/17/16 09:00 12/17/16 09:00 12/17/16 09:00 - Medications Medications: Current Medications Acetaminophen (Tylenol 325mg Tab) 650 mg PO Q4 PRN PRN Reason: Headache Last Admin: 12/15/16 03:31 Dose: 650 mg Al Hydrox/Mg Hydrox/Simethicone (Maalox Plus 30 Ml) 30 ml PO Q4 PRN PRN Reason: Indigestion / Heartburn Last Admin: 12/17/16 08:33 Dose: 30 ml Alprazolam (Xanax) 0.25 mg PO HS PRN PRN Reason: Anxiety Stop: 12/21/16 16:28 Last Admin: 12/16/16 21:43 Dose: 0.25 mg Aspirin (Aspirin) 325 mg PO DAILY [facility] Last Admin: 12/17/16 08:38 Dose: 325 mg Atorvastatin Calcium (Lipitor) 20 mg PO HS [facility] Last Admin: 12/16/16 21:43 Dose: 20 mg Enoxaparin Sodium (Lovenox) 30 mg SC DAILY [facility] PRN Reason: Protocol Last Admin: 12/17/16 08:34 Dose: 30 mg Finasteride (Proscar) 5 mg PO HS [facility] Last Admin: 12/16/16 21:43 Dose: 5 mg Loratadine (Claritin) 10 mg PO DAILY [facility] Last Admin: 12/17/16 08:34 Dose: 10 mg Metoprolol Tartrate (Lopressor) 25 mg PO BID [facility] Last Admin: 12/17/16 08:39 Dose: 25 mg Morphine Sulfate (Morphine) 2 mg IVP Q4 PRN PRN Reason: Pain, severe (8-10) Last Admin: 12/17/16 12:43 Dose: 2 mg Nitroglycerin (Nitro-Bid) 0.5 appl TOP Q6 PRN PRN Reason: FOR CHEST PAIN Last Admin: 12/15/16 21:07 Dose: 0.5 appl Pantoprazole Sodium (Protonix Ec Tab) 40 mg PO BID [facility] Last Admin: 12/17/16 08:34 Dose: 40 mg Sodium Polystyrene Sulfonate (Kayexalate Oral Susp) 30 gm PO ONCE ONE Stop: 12/17/16 12:47 Sucralfate (Carafate Oral Susp) 1 gm PO QID [facility] Last Admin: 12/17/16 12:31 Dose: 1 gm Tamsulosin HCl (Flomax) 0.4 mg PO HS [facility] Last Admin: 12/16/16 21:43 Dose: 0.4 mg - Labs Labs: 12/16/16 04:30 12/17/16 06:00 PT 10.8 SECONDS (9.6-11.2) 12/14/16 15:05 INR 1.04 (0.92-1.08) 12/14/16 15:05 APTT 28.5 SECONDS (23.3-32.5) 12/14/16 15:05 - Head Exam Head Exam: NORMAL INSPECTION - Eye Exam Eye Exam: Normal appearance - ENT Exam ENT Exam: Mucous Membranes Moist - Respiratory Exam Respiratory Exam: NORMAL BREATHING PATTERN - Cardiovascular Exam Cardiovascular Exam: REGULAR RHYTHM - GI/Abdominal Exam GI & Abdominal Exam: Normal Bowel Sounds - Neurological Exam Neurological Exam: CN II-XII Intact, Oriented x3 Assessment and Plan (1) Chest pain Status: Acute (2) Benign prostatic hyperplasia Status: Acute - Assessment and Plan (Free Text) Plan: Cont med cont ts cont pain meds check labs.
--- NOTE | 2016-12-17 15:45 | RAD ---
HISTORY: pain at the neck and back COMPARISON: No prior. FINDINGS: BONES: No compressive deformity. Mild scoliosis. DISC SPACES: Normal. SOFT TISSUES: Normal. OTHER FINDINGS: Surgical clips in the projection of the epigastric region. Calcification of the aortic arch noted. IMPRESSION: No compressive deformity. Cross-sectional imaging can be obtained if symptoms persist.
--- NOTE | 2016-12-17 15:47 | RAD ---
Cervical spine. History: Pain. Comparison: None. Findings: Multiple views of the cervical spine were obtained. Extensive degenerative changes particularly involving the C4-C5 and C6 vertebral bodies. Apparent fusion of the C4-C5 vertebral bodies. Facet hypertrophy noted. Narrowing of the disc space at C5-C6 and C6-C7. Anterior osteophytosis noted. The dens appears intact. Posterior soft tissue calcifications. Impression: No apparent evidence of acute fracture. Dens appears intact. Extensive degenerative changes. Cross-sectional imaging can be considered if symptoms persist.
[2016-12-18 07:24] LABS: HEMATOCRIT 38.9 % (35.0-51.0); MEAN CORPUSCULAR HEMOGLOBIN 27.8 pg (27.0-31.0); MEAN CORPUSCULAR HGB CONC 32.7 g/dL (33.0-37.0); RED CELL DISTRIBUTION WIDTH 14.5 % (11.5-14.5); WHITE BLOOD COUNT 7.6 K/uL (4.8-10.8)
[2016-12-18 07:39] LABS: CALCIUM 8.8 mg/dL (8.4-10.2); POTASSIUM 5.3 MMOL/L (3.6-5.0)
[2016-12-18] MEDS: Sucralfate 1 gm/10 ml Oral Susp UD PO SCH ×4 (08:40→22:04)
[2016-12-18] MEDS: Pantoprazole 40 mg EC Tab PO SCH (08:43)
[2016-12-18] MEDS: Enoxaparin 30 mg Syringe SC SCH (08:51)
[2016-12-18] MEDS ORDERED: Sod Polystyrene Sulf 15 gm/60 ml Oral Susp PO ONE (09:21)
[2016-12-19 00:13] VITALS: RESP 18
--- NOTE | 2016-12-19 06:12 | CP.PCM.PN ---
Subjective - Date & Time of Evaluation Date of Evaluation: 12/18/16 Time of Evaluation: 09:00 - Subjective Subjective: Patient remains stable However noted to have persistently elevated potassium BUN 33 creatinine 2.2 K 5.2 Has All enzymes are normal. Objective - Vital Signs/Intake and Output Vital Signs (last 24 hours): Temp Pulse Resp BP Pulse Ox 97.5 F L 64 18 137/79 96 12/19/16 05:00 12/19/16 05:00 12/19/16 05:00 12/19/16 05:00 12/19/16 05:00 - Medications Medications: Current Medications Acetaminophen (Tylenol 325mg Tab) 650 mg PO Q4 PRN PRN Reason: Headache Last Admin: 12/15/16 03:31 Dose: 650 mg Al Hydrox/Mg Hydrox/Simethicone (Maalox Plus 30 Ml) 30 ml PO Q4 PRN PRN Reason: Indigestion / Heartburn Last Admin: 12/17/16 08:33 Dose: 30 ml Alprazolam (Xanax) 0.25 mg PO HS PRN PRN Reason: Anxiety Stop: 12/21/16 16:28 Last Admin: 12/18/16 22:02 Dose: 0.25 mg Aspirin (Aspirin) 325 mg PO DAILY [facility] Last Admin: 12/18/16 08:53 Dose: 325 mg Atorvastatin Calcium (Lipitor) 20 mg PO HS [facility] Last Admin: 12/18/16 22:05 Dose: 20 mg Finasteride (Proscar) 5 mg PO HS [facility] Last Admin: 12/18/16 22:04 Dose: 5 mg Loratadine (Claritin) 10 mg PO DAILY [facility] Last Admin: 12/18/16 08:42 Dose: 10 mg Metoprolol Tartrate (Lopressor) 25 mg PO BID [facility] Last Admin: 12/18/16 16:13 Dose: 25 mg Morphine Sulfate (Morphine) 2 mg IVP Q4 PRN PRN Reason: Pain, severe (8-10) Last Admin: 12/18/16 20:34 Dose: 2 mg Nitroglycerin (Nitro-Bid) 0.5 appl TOP Q6 PRN PRN Reason: FOR CHEST PAIN Last Admin: 12/15/16 21:07 Dose: 0.5 appl Pantoprazole Sodium (Protonix Ec Tab) 40 mg PO BID [facility] Last Admin: 12/18/16 08:43 Dose: 40 mg Sucralfate (Carafate Oral Susp) 1 gm PO QID [facility] Last Admin: 12/18/16 22:04 Dose: 1 gm Tamsulosin HCl (Flomax) 0.4 mg PO HS [facility] Last Admin: 12/18/16 22:04 Dose: 0.4 mg - Labs Labs: 12/18/16 06:40 12/18/16 06:40 PT 10.8 SECONDS (9.6-11.2) 12/14/16 15:05 INR 1.04 (0.92-1.08) 12/14/16 15:05 APTT 28.5 SECONDS (23.3-32.5) 12/14/16 15:05 - Head Exam Head Exam: NORMAL INSPECTION - Eye Exam Eye Exam: Normal appearance - ENT Exam ENT Exam: Mucous Membranes Moist - Respiratory Exam Respiratory Exam: Clear to Ausculation Bilateral - Cardiovascular Exam Cardiovascular Exam: REGULAR RHYTHM - GI/Abdominal Exam GI & Abdominal Exam: Normal Bowel Sounds - Neurological Exam Neurological Exam: CN II-XII Intact, Oriented x3 Assessment and Plan (1) Chest pain Status: Acute (2) Benign prostatic hyperplasia Status: Acute (3) Renal insufficiency Status: Acute (4) Hyperkalemia Status: Acute (5) Dehydration Status: Acute - Assessment and Plan (Free Text) Plan: cont meds encouraged hydration cont tx check lytes in am.
[2016-12-19 07:25] LABS: CALCIUM 8.6 mg/dL (8.4-10.2); POTASSIUM 4.9 MMOL/L (3.6-5.0)
[2016-12-19 08:09] VITALS: BP 149/75; TEMP 97.9; O2SAT 94
[2016-12-19] MEDS: Pantoprazole 40 mg EC Tab PO SCH (08:47)
[2016-12-19 08:48] VITALS: PULSE 64
[2016-12-19] MEDS: Sucralfate 1 gm/10 ml Oral Susp UD PO SCH (08:50)
[2016-12-19] MEDS: NITROGLYCERIN TOP PRN (08:55)
--- NOTE | 2016-12-19 11:20 | CP.PCM.DIS ---
Provider - Provider Date of Admission: 12/15/16 12:06 Attending physician: Artie He MD Time Spent in preparation of Discharge (in minutes): 45 Hospital Course - Lab Results Lab Results: Most Recent Lab Values WBC 7.6 K/uL (4.8-10.8) 12/18/16 06:40 RBC 4.58 Mil/uL (4.40-5.90) 12/18/16 06:40 Hgb 12.7 g/dL (12.0-18.0) 12/18/16 06:40 Hct 38.9 % (35.0-51.0) 12/18/16 06:40 MCV 85.0 fl (80.0-94.0) 12/18/16 06:40 MCH 27.8 pg (27.0-31.0) 12/18/16 06:40 MCHC 32.7 g/dL (33.0-37.0) L 12/18/16 06:40 RDW 14.5 % (11.5-14.5) 12/18/16 06:40 Plt Count 218 K/uL (130-400) 12/18/16 06:40 MPV 9.3 fl (7.2-11.7) 12/14/16 15:05 Neut % (Auto) 49.3 % (50.0-75.0) L 12/14/16 15:05 Lymph % (Auto) 37.0 % (20.0-40.0) 12/14/16 15:05 Tyrrell % (Auto) 8.0 % (0.0-10.0) 12/14/16 15:05 Eos % (Auto) 5.1 % (0.0-4.0) H 12/14/16 15:05 Baso % (Auto) 0.6 % (0.0-2.0) 12/14/16 15:05 Neut # 3.7 K/uL (1.8-7.0) 12/14/16 15:05 Lymph # 2.8 K/uL (1.0-4.3) 12/14/16 15:05 Tyrrell # 0.6 K/uL (0.0-0.8) 12/14/16 15:05 Eos # 0.4 K/uL (0.0-0.7) 12/14/16 15:05 Baso # 0.0 K/uL (0.0-0.2) 12/14/16 15:05 PT 10.8 SECONDS (9.6-11.2) 12/14/16 15:05 INR 1.04 (0.92-1.08) 12/14/16 15:05 APTT 28.5 SECONDS (23.3-32.5) 12/14/16 15:05 Sodium 141 mmol/l (132-148) 12/19/16 06:30 Potassium 4.9 MMOL/L (3.6-5.0) 12/19/16 06:30 Chloride 104 mmol/L (98-107) 12/19/16 06:30 Carbon Dioxide 25 mmol/L (22-30) 12/19/16 06:30 Anion Gap 17 (10-20) 12/19/16 06:30 BUN 32 mg/dl (9-20) H 12/19/16 06:30 Creatinine 2.1 mg/dL (0.8-1.5) H 12/19/16 06:30 Est GFR ( Amer) 37 12/19/16 06:30 Est GFR (Non-Af Amer) 30 12/19/16 06:30 Random Glucose 96 mg/dL (75-110) 12/19/16 06:30 Calcium 8.6 mg/dL (8.4-10.2) 12/19/16 06:30 Total Bilirubin 0.5 mg/dl (0.2-1.3) 12/14/16 15:05 AST 26 U/L (17-59) 12/14/16 15:05 ALT 26 U/L (21-72) 12/14/16 15:05 Alkaline Phosphatase 92 U/L (38-126) 12/14/16 15:05 Troponin I 0.0140 ng/mL (0.00-0.120) 12/15/16 00:30 Total Protein 6.8 G/DL (6.3-8.2) 12/14/16 15:05 Albumin 3.8 g/dL (3.5-5.0) 12/14/16 15:05 Globulin 3.0 gm/dL (2.2-3.9) 12/14/16 15:05 Albumin/Globulin Ratio 1.3 (1.0-2.1) 12/14/16 15:05 Amylase 126 U/L (30-110) H 12/15/16 15:18 Lipase 199 U/L (23-300) 12/15/16 15:18 Urine Color Straw (YELLOW) 12/16/16 15:00 Urine Clarity Clear (Clear) 12/16/16 15:00 Urine pH 6.0 (5.0-8.0) 12/16/16 15:00 Ur Specific Centre 1.009 (1.003-1.030) 12/16/16 15:00 Urine Protein 100 mg/dL (NEGATIVE) 12/16/16 15:00 Urine Glucose (UA) Neg mg/dL (Normal) 12/16/16 15:00 Urine Ketones Negative mg/dL (NEGATIVE) 12/16/16 15:00 Urine Blood Negative (NEGATIVE) 12/16/16 15:00 Urine Nitrate Negative (NEGATIVE) 12/16/16 15:00 Urine Bilirubin Negative (NEGATIVE) 12/16/16 15:00 Urine Urobilinogen 0.2-1.0 mg/dL (0.2-1.0) 12/16/16 15:00 Ur Leukocyte Esterase Neg Louise/uL (Negative) 12/16/16 15:00 Urine RBC (Auto) < 1 /hpf (0-3) 12/16/16 15:00 Urine Microscopic WBC < 1 /hpf (0-5) 12/16/16 15:00 Ur Random Amylase 57 U/L (32-641) 12/16/16 15:00 - Hospital Course Hospital Course: 86M admitted to rule out ACS, troponins negative x3, found to be hyperkalemic and felt to be 2/2 volume depletion. Cardiology, Dr Medina, evaluated patient, and felt pain non-cardiac in nature. CXR w/o active disease and abdominal ultrasound negative for source of pain. Patient stable for discharge to home on home medications. Discharge Exam - Head Exam Head Exam: NORMAL INSPECTION - Eye Exam Eye Exam: EOMI, Normal appearance - ENT Exam ENT Exam: Mucous Membranes Moist, Normal Exam - Respiratory Exam Respiratory Exam: NORMAL BREATHING PATTERN. absent: Rales - Cardiovascular Exam Cardiovascular Exam: REGULAR RHYTHM. absent: JVD - GI/Abdominal Exam GI & Abdominal Exam: Normal Bowel Sounds, Soft. absent: Tenderness - Neurological Exam Neurological exam: Alert, Oriented x3 - Skin Skin Exam: Normal Color, Warm Discharge Plan - Discharge Medications Prescriptions: Loratadine [Claritin] 10 mg PO DAILY #30 tab Atorvastatin [Lipitor] 20 mg PO DAILY #30 tab Metoprolol Tartrate [Lopressor] 25 mg PO BID #60 tab Finasteride [Proscar] 5 mg PO HS #30 tab ALPRAZolam [Xanax] 0.25 mg PO HS PRN #15 tab PRN Reason: Anxiety - Follow Up Plan Condition: STABLE Disposition: HOME/ ROUTINE Instructions: Gastroesophageal Reflux Disease (DC), Dehydration (DC) Referrals: Artie He MD [Staff Provider] - 1 Week
== END 2016-12-19 12:22 | disposition home or self-care (01) | DRG 641 ==
LOC: H.ER 13:41 → H.ERHOLD 16:15 → H.TEL 18:41 → OBSVTOIN 12-15 12:06
PROVIDERS: ADMIT Family Medicine; ATTEND Family Medicine
DX: E87.5 Hyperkalemia (principal); E86.0 Dehydration; R07.89 Other chest pain; N40.0 Benign prostatic hyperplasia without lower urinary tract symptoms; E78.5 Hyperlipidemia, unspecified; F41.9 Anxiety disorder, unspecified; I10 Essential (primary) hypertension; H91.92 Unspecified hearing loss, left ear; Z87.891 Personal history of nicotine dependence; Z88.0 Allergy status to penicillin; Z79.82 Long term (current) use of aspirin; Z87.11 Personal history of peptic ulcer disease